=== PATIENT | female | born 1940 | race Caucasian/White ===

== ENCOUNTER 2024-02-13 05:13 | Emergency (ER) | payer MEDICARE, OTHER, SELFPAY ==
[2024-02-13 05:16] VITALS: BP 144/84
[2024-02-13 05:57] VITALS: BMI 17.3
[2024-02-13 05:58] VITALS: BP 123/63
--- NOTE | 2024-02-13 06:32 | ED.GENMED ---
History of Present Illness
General
Chief Complaint: Fall
Source: patient and spouse
Exam Limitations: none
Time Seen by Provider: 02/13/24 06:05
Nursing documentation reviewed up to this point in time: agreed with
Travel History
Have you had any contact with someone who has COVID-19?: No
Do you have any symptoms of coronavirus? Fever > 100 degrees, chills, cough, shortness of breath, sore throat, loss of taste or smell, muscle aches, or headache?: No
History of Present Illness
History of Present Illness:
The patient is a pleasant 83-year-old female who reports that she got up to go to the bathroom at around 4:30 AM this morning, lost her footing, and hit her head on the bathtub. Patient reports that her helped her get up off the ground.
There is no loss of consciousness. She denies headache, vision changes, nausea, vomiting and dizziness. She denies tingling and numbness of the arms and legs. She reports that she has chronic balance issues and has fallen in the past. She denies
any recent fever, nausea, vomiting, diarrhea, chest pain or cough. Patient has a laceration at the back of her head. She denies worsening neck pain and denies back pain.
Past History
Past History
ED Past Medical History: GERD
ED Past Surgical History: Gynecological
Social History
Tobacco: Former smoker
Alcohol: None
Drug: None
Personal:
Living: with family
Employment: Other
Family History
Family History: Other
Review of Systems
Review of Systems
Allergies reviewed?: Yes
Other source history: family
All Other Systems: ROS reviewed and negative except as documented in HPI and ROS
Constitutional: Reports no symptoms
EENT: Reports no symptoms
Respiratory: Reports no symptoms
Cardiac: Reports no symptoms
ABD/GI: Reports no symptoms
: Reports no symptoms
Musculoskeletal: Reports no symptoms
Skin: Reports other
Neurological: Reports no symptoms
Endocrine: Reports no symptoms
Hematologic/Lymphatic: Reports no symptoms
Psychiatric: Reports no symptoms
Phy Exam
Physical Exam
Physical Exam:
Physical Exam
General: no apparent distress, not acutely ill. Patient is conversational
Neck: supple. No C-spine tenderness. Contusion left posterior scalp area with 1.5 cm laceration
Heart: s1/s2 regular rate and rhythm, no murmur. equal radial pulses. No chest wall tenderness
Lungs: no acute respiratory distress. clear bilaterally. No vertebral spine tenderness
Abdomen: normal bowel sounds. Soft, nontender
Neuro: alert and oriented. no focal neurological deficits. EOMI. PERRL
Skin: no rash
Psychiatric: well kept. interactive and cooperative
Extremities: Nontender upper and lower extremities. Pelvis and hips are nontender.
Course
Orders/Labs/Results
Orders:
Orders
02/13/24 05:50
CT Cervical Spine W/o Iv Contr Urgent
Comment:
Reason For Exam: fall
CT Head W/o Iv Contrast Urgent
Comment:
Reason For Exam: fa;;
Vital Signs
Initial and Last Documented VS:
Initial Vital Signs
Temp Pulse Resp BP Pulse Ox
98.1 F 92 24 144/84 96
02/13/24 05:16 02/13/24 05:16 02/13/24 05:16 02/13/24 05:16 02/13/24 05:16
Last Documented Vital Signs
Temp Pulse Resp BP Pulse Ox
98.1 F 68 16 117/60 95
02/13/24 05:16 02/13/24 07:08 02/13/24 07:08 02/13/24 07:08 02/13/24 07:08
Procedures
Laceration Closure
Posterior Scalp:
Status of Wound: clean
Description of Wound Edges: surrounded by abrasion
Preparation: cleaned with saline
Anesthesia: 1% Lidocaine with epi
Revision/Debridement: routine- no revision
Type of Closure: single layer closure
Skin Closure Material: skin rosmery (2)
MDM/Problems Addressed
Differential Diagnosis Includes:
Closed head injury, subdural hematoma, skull fracture
MDM/Problems Addressed:
Patient presents with acute contusion and laceration to scalp after a fall
Acute Exacerbation and/or Progression of Chronic Illness:
Patient is acutely hypertensive, however, this is likely due to anxiety from the fall.
Acute Exacerbation and/or Progression of Chronic Illness: HTN
*Radiology
Radiology exam reviewed: preliminary read by ED provider (CT reviewed by me. No acute blood seen in the brain) and radiology read reviewed
*Pulse Oximetry
Patient hypoxic: no
*EKG
Interpreted by ED Provider?: NA
*Business Banking Relationship Manager Interpretation
Rate: Business Banking Relationship Manager- N/A
*Critical Care Note
Total Time (30-74mins, 75-104mins- exclusive of procedures): Not Applicable
Data Reviewed
Review of Other/Old Records Reveals: Discharge Summary (Discharge summary reviewed from 04/01/2021 when patient was admitted for pneumonia and hyponatremia)
Source: patient and spouse
Patient Management
Social determinants of health affecting care: Living situation and Strong social support
Escalation/DeEscalation of care consider admission/obs:
Patient looks well and comfortable. She is smiling and conversational. will be with her today and will watch her for any vomiting or lethargy
ED Attending Note
-
Portions of this chart may have been created with voice recognition software.� Occasional wrong word or��sound alike� substitutions may have occurred due to the inherent limitations of voice recognition software.
Discharge Plan
Departure
Patient Disposition: Home (Routine Discharge)
Date of Disposition: 02/13/24
Time of Disposition: 06:56
Patient with high blood pressure during this ER visit?: Yes
Condition: Good
Covid-19: Not Applicable
Discharge Problem:
Closed head injury, Laceration of scalp
Instructions: Head Injury in Adults (DC), Laceration Repair With [place] (DC)
Prescriptions:
No Action
cyanocobalamin (vitamin B-12) 1,000 MCG tablet
1,000 mcg PO DAILY Qty: 30 0RF
cefdinir 300 MG capsule
300 mg PO BID Qty: 8 0RF
Rx Instructions:
FIRST DOSE EVENING OF 04/01/21
furosemide 20 MG tablet
20 mg PO DAILY PRN (Reason: TAKE NEEDED FOR LEG SWELLIN) Qty: 4 0RF
Referrals:
Norberto Price MD [Family Provider] -
Activity Restrictions/Additional Instructions:
Take 650 mg of Tylenol every 4-6 hours for pain. Please remain awake until 11:30 am today so that you can be observed for any excessive drowsiness or vomiting. After that, you can take a nap. It is normal to have a headache, mild dizziness and
fatigue.
Please return with any severe headache or vomiting.
The 2 rosmery in your scalp will need to be removed in 7 to 10 days. You can call your primary care doctor's office to see if they are able to remove the rosmery. If not, you may need to go to urgent care or the emergency department to have this
done.
Interventions
Interventions:
*Risk Screen - Suicide Last Done: 02/13/24 05:16
*General Assessment Last Done: 02/13/24 07:02
*Neglect/Abuse Screening Last Done: 02/13/24 05:16
ED- Fall Risk Assessment Last Done: 02/13/24 05:40
*ED COVID-19 Vaccine History Last Done: 02/13/24 07:01
*Nursing Disposition Last Done: 02/13/24 07:08
ED-Musculoskeletal Assessment Last Done: 02/13/24 05:40
ED- Neurological Assessment Last Done: 02/13/24 05:40
ED-Skin Assessment Last Done: 02/13/24 05:40
Discharge Date and Time
Discharge Date/Time: 02/13/24 07:15
[2024-02-13 06:39] VITALS: BP 113/57
[2024-02-13 07:08] VITALS: BP 117/60
== END 2024-02-13 07:15 | disposition home or self-care (01) ==
LOC: EMR 05:13
PROVIDERS: EMERGENCY PHYSICIAN Emergency Medicine; FAMILY PHYSICIAN Family Medicine
DX: S01.01XA Laceration without foreign body of scalp, initial encounter (principal); S09.8XXA Other specified injuries of head, initial encounter; W01.198A Fall on same level from slipping, tripping and stumbling with subsequent striking against other object, initial encounter; R03.0 Elevated blood-pressure reading, without diagnosis of hypertension; Z87.891 Personal history of nicotine dependence
CPT/HCPCS: 99284; 12001; 70450; 72125